=== PATIENT | female | born 1955 | race Caucasian/White ===

== ENCOUNTER → 2017-06-03 | Outpatient (CLI) | payer OTHER | END | disposition home or self-care (01) | LOC: CFH 10:31 | PROVIDERS: ATTEND Nurse Practitioner | DX: M51.36 Other intervertebral disc degeneration, lumbar region (principal); G89.29 Other chronic pain; Z98.1 Arthrodesis status | CPT/HCPCS: 72131 ==

== ENCOUNTER → 2017-10-06 | Outpatient (CLI) | payer OTHER | LOC: CFH 12:11 | PROVIDERS: ATTEND Family Medicine | DX: N63.22 Unspecified lump in the left breast, upper inner quadrant (principal) | CPT/HCPCS: 77066 ==

== ENCOUNTER 2018-02-27 04:07 | Emergency (ER) | payer OTHER ==
[~2018-02-27] VITALS: Ht 162.6 cm; Wt 120.0 kg
[2018-02-27 06:58] VITALS: BP 150/93
== END 2018-02-27 07:09 | disposition home or self-care (01) ==
LOC: ED 06:55
DX: M25.571 Pain in right ankle and joints of right foot (principal); M79.89 Other specified soft tissue disorders; I10 Essential (primary) hypertension; E11.40 Type 2 diabetes mellitus with diabetic neuropathy, unspecified; G89.29 Other chronic pain; J45.909 Unspecified asthma, uncomplicated
CPT/HCPCS: 82962; 99284

== ENCOUNTER 2018-10-24 07:46 | Emergency (ER) | payer OTHER ==
[~2018-10-24] VITALS: Ht 162.6 cm; Wt 124.6 kg
[2018-10-24] MEDS ORDERED: INSU100I13 SQ-INSULIN ×2 (08:11)
--- NOTE | 2018-10-24 08:11 | NUR ---
First contact with pt. Pt states, "Since I have had this cough. I saw the ER doctor and my primary care. The ER doctor gave me antibiotics, and my primary care doctor gave me mucinex, and other meds. I don't feel better, I can't get rid of this cough and it hurts when I cough. I smoked 30 years ago." NADN. Pt connected to all monitors. Pt sinus tachycardia at 92, 95% room air spo2%, RR 25, bp is 155/[address], call light within reach. Pt denies chest pain, n/v/d, trauma.
[2018-10-24] MEDS ORDERED: PREG100C PO (08:17)
[2018-10-24] MEDS ORDERED: LOSA1TAB25 PO (08:17)
[2018-10-24] MEDS ORDERED: IBUP-1223 PO (08:17)
[2018-10-24] MEDS ORDERED: carvedilol PO (08:17)
[2018-10-24] MEDS ORDERED: PRAV10TA2 PO (08:17)
[2018-10-24] MEDS ORDERED: [UNRECOGNIZED DRUG - REMARK] (08:18)
[2018-10-24] MEDS ORDERED: ANTIDEPRESSENT (08:21)
[2018-10-24] MEDS ORDERED: antidepressant (08:26)
[2018-10-24] MEDS ORDERED: HYDROcodone/APAP 5/325 TABLET ONE (08:29)
[2018-10-24] MEDS ORDERED: HYDROcodone/APAP 5/325 TABLET PO ONE (08:30)
[2018-10-24] MEDS ORDERED: ALBUTEROL/IPRATROPIUM 2.5MG/0.5MG, 3 ML NPPB ONE (08:30)
[2018-10-24 08:39] LABS: ALANINE AMINOTRANSFERASE 17 U/L (12-78); ALBUMIN 3.1 g/dL (3.4-5.0); ANION GAP 6 mmol/L (5-15); CHLORIDE 108 mmol/L (98-107); CREATININE 0.74 mg/dL (0.55-1.02)
[2018-10-24 08:43] LABS: ALKALINE PHOSPHATASE 177 U/L (45-117); BILIRUBIN,TOTAL 0.4 mg/dL (0.2-1.0); TOTAL PROTEIN 7.2 g/dL (6.4-8.2); TROPONIN I < 0.015 ng/mL (0.000-0.045)
[2018-10-24 08:44] LABS: MEAN CORPUSCULAR HEMOGLOBIN 26.9 pg (27.0-34.8); MEAN CORPUSCULAR HGB CONC 32.7 g/dL (32.4-35.8); MEAN CORPUSCULAR VOLUME 82.1 fL (80-100); MEAN PLATELET VOLUME 7.2 fL (7.4-10.4); PLATELET COUNT 419 x10^3/uL (130-400); RED BLOOD COUNT 5.41 x10^6/uL (3.82-5.3); RED CELL DISTRIBUTION WIDTH 13.4 % (9.6-15.2)
[2018-10-24] MEDS ORDERED: ALBUTEROL/IPRATROPIUM 2.5MG/0.5MG, 3 ML ONE (08:51)
[2018-10-24 09:10] LABS: BASOPHILS # (AUTO) 0.03 x10^3/uL (0-0.1); BASOPHILS % (AUTO) 0 % (0-1); EOSINOPHILS # (AUTO) 0.24 x10^3/uL (0-0.4); EOSINOPHILS % (AUTO) 2 % (1-7); LYMPHOCYTES # (AUTO) 2.46 x10^3/uL (1-3.4); LYMPHOCYTES % (AUTO) 23 % (22-44); MD SCAN; MONOCYTES # (AUTO) 0.75 x10^3/uL (0.2-0.8); MONOCYTES % (AUTO) 7 % (2-9); NEUTROPHILS # (AUTO) 7.47 x10^3/uL (1.8-6.8); NEUTROPHILS % (AUTO) 68 % (42-75)
[2018-10-24 10:12] VITALS: BP 144/84
== END 2018-10-24 11:21 | disposition home or self-care (01) ==
LOC: ED 09:14
DX: J98.01 Acute bronchospasm (principal); J18.9 Pneumonia, unspecified organism; E78.00 Pure hypercholesterolemia, unspecified; I10 Essential (primary) hypertension; E11.9 Type 2 diabetes mellitus without complications; F31.9 Bipolar disorder, unspecified
CPT/HCPCS: 36415; 71045; 80053; 84484; 85025; 93005; 94640; 99284